=== PATIENT | male | born 1950 | race Caucasian/White ===

== ENCOUNTER 2021-02-24 19:54 | Observation (INO) | payer OTHER, MEDICARE, MEDICAID ==
[2021-02-24] MEDS ORDERED: Ondansetron PF 4 MG/2 ML Vial IVP PRN (21:00)
[2021-02-24] MEDS ORDERED: Senokot S 8.6-50 MG TAB PO PRN (21:00)
[2021-02-24] MEDS ORDERED: Acetaminophen 325 MG TAB PO PRN (21:00)
[2021-02-24] MEDS ORDERED: Calcium Carbonate 500 MG ChewTAB PO PRN (21:00)
[2021-02-24] MEDS ORDERED: Heparin 5,000 UNITS/ML VIAL SC SCH (21:30)
[2021-02-24] MEDS ORDERED: Amiodarone 200 MG TAB PO SCH (21:30)
[2021-02-24 22:53] LABS: CKMB 3.1 ng/mL (0-6.6)
[2021-02-24 23:24] VITALS: BMI 18.5
[2021-02-25 06:45] LABS: #Eosinphils 0.8 10x3/uL (0.0-0.5); #Neutrophils 4.3 10x3/uL (1.5-8.4); %Basophils 0.5 % (0.0-2.0); %Eosinophils 10.2 % (0.0-6.0); %Lymphocytes 20.8 % (18.0-47.0); %Monocytes 12.3 % (0.0-10.0); %Neutrophils 55.8 % (40.0-75.0); Hemoglobin 12.2 g/dL (13.5-17.5); Mean Corpuscular HGB CONC 31.9 g/dL (32.0-36.0); Mean Corpuscular Hemoglobin 33.7 pg (27.0-33.0); Mean Corpuscular Volume 105.8 fl (81.2-95.1); Mean Platelet Volume 10.5 fl (7.4-10.4); Platelet Count 156 10x3/uL (150-450); RBC Distribution Width 14.4 % (11.5-14.5); Red Blood Cell (RBC) Count 3.62 10x6/uL (4.32-5.72); White Blood Cell (WBC) Count 7.7 10x3/uL (3.5-10.5)
[2021-02-25 06:59] LABS: Anion Gap 24 mmol/L (10-20); BUN (Urea Nitrogen) 69 mg/dL (8.4-25.7); Calc. Creatinine Clearance 7 mL/min (70-130); Calcium 8.7 mg/dL (7.8-10.44); Carbon Dioxide 18 mmol/L (23-31); Chloride 105 mmol/L (98-107); Glucose 83 mg/dL (83-110); Potassium 6.1 mmol/L (3.5-5.1); Sodium 141 mmol/L (136-145)
[2021-02-25 07:18] LABS: CKMB 3.7 ng/mL (0-6.6)
[2021-02-25 09:13] LABS: Hemoglobin A1c 5.2 % (4.0-6.0)
[2021-02-25] MEDS: Atorvastatin Calcium 10 MG TAB PO SCH (09:39)
[2021-02-25] MEDS: Amiodarone 200 MG TAB PO SCH ×2 (09:39→20:33)
[2021-02-25] MEDS: Cinacalcet HCl 30 MG TAB PO SCH (09:39)
[2021-02-25] MEDS: Cholecalciferol 1,000 UNITS (25 MCG) TAB PO SCH (09:39)
[2021-02-25] MEDS: Sevelamer Carbonate 800 MG TAB PO SCH ×3 (09:39→16:56)
[2021-02-25] MEDS: Carvedilol 3.125 MG TAB PO SCH ×2 (09:40→16:56)
[2021-02-25] MEDS: Heparin 5,000 UNITS/ML VIAL SC SCH ×3 (09:40→20:33)
[2021-02-25] MEDS: Aspirin 81 mg Enteric Coated Tablet PO SCH (09:40)
[2021-02-25 15:41] LABS: SARS-CoV-2 PCR by NAA Not Detected (NotDetected)
[2021-02-25 15:51] LABS: Anion Gap 21 mmol/L (10-20); BUN (Urea Nitrogen) 75 mg/dL (8.4-25.7); Calc. Creatinine Clearance 6 mL/min (70-130); Calcium 8.4 mg/dL (7.8-10.44); Carbon Dioxide 19 mmol/L (23-31); Chloride 106 mmol/L (98-107); Glucose 79 mg/dL (83-110); Potassium 5.4 mmol/L (3.5-5.1); Sodium 141 mmol/L (136-145)
[2021-02-26 05:13] LABS: Anion Gap 24 mmol/L (10-20); BUN (Urea Nitrogen) 86 mg/dL (8.4-25.7); Calc. Creatinine Clearance 6 mL/min (70-130); Calcium 8.3 mg/dL (7.8-10.44); Carbon Dioxide 18 mmol/L (23-31); Chloride 105 mmol/L (98-107); Glucose 83 mg/dL (83-110); Potassium 5.6 mmol/L (3.5-5.1); Sodium 141 mmol/L (136-145)
[2021-02-26] MEDS: Carvedilol 3.125 MG TAB PO SCH (08:06)
[2021-02-26] MEDS: Atorvastatin Calcium 10 MG TAB PO SCH (08:06)
[2021-02-26] MEDS: Cholecalciferol 1,000 UNITS (25 MCG) TAB PO SCH (08:06)
[2021-02-26] MEDS: Amiodarone 200 MG TAB PO SCH (08:07)
[2021-02-26] MEDS: Sevelamer Carbonate 800 MG TAB PO SCH ×2 (08:07→14:33)
[2021-02-26] MEDS: Cinacalcet HCl 30 MG TAB PO SCH (08:07)
[2021-02-26] MEDS: Aspirin 81 mg Enteric Coated Tablet PO SCH (08:11)
[2021-02-26] MEDS ORDERED: Thiamine 100 MG TAB PO SCH (09:00)
[2021-02-26] MEDS ORDERED: Folic Acid 1 MG TAB PO SCH (09:00)
[2021-02-26] MEDS: Heparin 5,000 UNITS/ML VIAL SC SCH ×2 (09:00→16:21)
[2021-02-26 12:21] VITALS: BP 145/65; TEMP 97.4
== END 2021-02-26 17:45 | disposition home or self-care (01) ==
LOC: CSHTELE 19:54
PROVIDERS: ADMIT Internal Medicine; ATTEND Internal Medicine
DX: E16.2 Hypoglycemia, unspecified (principal); R77.8 Other specified abnormalities of plasma proteins; E87.5 Hyperkalemia; D72.829 Elevated white blood cell count, unspecified; I13.2 Hypertensive heart and chronic kidney disease with heart failure and with stage 5 chronic kidney disease, or end stage renal disease; N18.6 End stage renal disease; I50.42 Chronic combined systolic (congestive) and diastolic (congestive) heart failure; D63.1 Anemia in chronic kidney disease; G40.909 Epilepsy, unspecified, not intractable, without status epilepticus; M47.896 Other spondylosis, lumbar region; I48.92 Unspecified atrial flutter; I25.10 Atherosclerotic heart disease of native coronary artery without angina pectoris; E78.5 Hyperlipidemia, unspecified; N25.81 Secondary hyperparathyroidism of renal origin; Z20.822 Contact with and (suspected) exposure to COVID-19; Z86.79 Personal history of other diseases of the circulatory system; Z99.2 Dependence on renal dialysis; Z79.82 Long term (current) use of aspirin; Z79.899 Other long term (current) drug therapy; Z95.810 Presence of automatic (implantable) cardiac defibrillator; Z88.8 Allergy status to other drugs, medicaments and biological substances; Z87.891 Personal history of nicotine dependence; Z79.891 Long term (current) use of opiate analgesic; V69.40XA Driver of heavy transport vehicle injured in collision with unspecified motor vehicles in traffic accident, initial encounter
CPT/HCPCS: 76705; 80048 ×3; 82010; 82533; 82553 ×2; 82607; 82746; 82962 ×3; 83036; 83525; 84305; 84484 ×2; 84681; 85025; 93880; 96372 ×2; G0378 ×3; U0003; U0005; 36415; 36416; 90935; G0257; J1644